=== PATIENT | female | born 2000 | race Two or more races ===

== ENCOUNTER 2021-10-15 15:45 | Observation (INO) | payer OTHER ==
[~2021-10-15] VITALS: Ht 160 cm; Wt 77.1 kg
[2021-10-15 17:23] LABS: Basophils # (auto) 0.1 10 ^3/uL (0-0.2); Basophils % (auto) 0.5 % (0.0-2.0); Eosinophils # (auto) 0 10 ^3/uL (0-0.8); Eosinophils % (auto) 0.3 % (0.0-7.0)
[2021-10-15 17:25] LABS: Hematocrit 33.2 % (36.0-46.0); Hemoglobin 10.8 g/dL (12.2-16.2); Lymphocytes # (auto) 1.6 10 ^3/uL (0.4-5.4); Mean Corpuscular Hemoglobin 24.5 pg (28.0-32.0); Mean Corpuscular Hgb Conc. 32.5 g/dL (32.0-36.0); Mean Corpuscular Volume 75.4 fL (80.0-100.0); Monocytes # (auto) 0.7 10 ^3/uL (0-1.3); Monocytes % (auto) 6.5 % (0.0-12.0); Neutrophils # (auto) 7.8 10 ^3/uL (1.6-8.6); Neutrophils % (auto) 76.7 % (37.0-80.0); Nucleated Red Blood Cells % 0.1 %; Red Cell Distribution Width 15.2 % (11.8-14.3); White Blood Cell 10.1 10^3/uL (4.4-10.8)
[2021-10-15 17:36] LABS: INR 0.94 (0.9-1.15); Partial Thromboplastin Time 26.7 sec (24.6-33.4)
[2021-10-15 17:42] LABS: Albumin 2.6 g/dL (3.4-5.0); Calcium 8.8 mg/dL (8.5-10.1)
[2021-10-15 17:46] LABS: BUN/Creatinine Ratio 17.2; Bilirubin, Total 0.3 mg/dL (0.2-1.0); Total Protein 6.5 g/dL (6.4-8.2)
[2021-10-16] MEDS ORDERED: PREN-96 PO (00:26)
[2021-10-16 05:07] LABS: Rubella Antibodies, IgG 1.25 index (Immune >0.99)
[2021-10-16 06:07] LABS: RPR Non Reactive (Non Reactive)
== END 2021-10-15 18:09 | disposition home or self-care (01) ==
LOC: LDRP 15:45 → UNDOADMOB 15:45 → LDRP 16:25
PROVIDERS: ADMIT Obstetrics & Gynecology; ATTEND Obstetrics & Gynecology
DX: O62.9 Abnormality of forces of labor, unspecified (principal); Z3A.39 39 weeks gestation of pregnancy; Z88.0 Allergy status to penicillin
CPT/HCPCS: 36415; 59025; 76805; 80053; 81002; 85025; 85610; 85730; 86592; 86703; 86762; 86850; 86900; 86901; G0378; 80307; 81001; 87340

== ENCOUNTER 2021-10-16 | Inpatient (IN) | payer OTHER ==
[~2021-10-16] VITALS: Ht 162.6 cm; Wt 77.1 kg
[2021-10-16] MEDS ORDERED: PREN-96 PO (00:26)
[2021-10-16] MEDS ORDERED: PHISODERM TOP SOLN 240ML BTL TOP PRN (00:30)
[2021-10-16] MEDS ORDERED: miSOPROStol 100 mcg TAB SL PRN (00:30)
[2021-10-16] MEDS ORDERED: CARBOPROST TROMETHAMINE 250 MCG/1ML VIAL IM PRN (00:30)
[2021-10-16] MEDS ORDERED: miSOPROStol 100 mcg TAB PR PRN (00:30)
[2021-10-16] MEDS ORDERED: WITCH HAZEL-GLYCERIN PAD TOP PRN (00:30)
[2021-10-16] MEDS ORDERED: LACTATED RINGER'S 1,000 ML IV SCH (00:30)
[2021-10-16] MEDS ORDERED: PROMETHAZINE HCL 25 MG/ML 1ML IV PRN (00:30)
[2021-10-16] MEDS ORDERED: NS/OXYTOCIN 20UNITS 500 ML IV ONE ×3 (00:30→04:15)
[2021-10-16] MEDS ORDERED: DERMOPLAST 60ML BOTTLE TOP PRN (00:30)
[2021-10-16] MEDS ORDERED: BUTORPHANOL TARTRATE 2 MG/1 ML VIAL IV PRN ×2 (00:30)
[2021-10-16] MEDS ORDERED: METHYLERGONOVINE MALEATE 0.2 MG/ML AMP IM PRN (00:30)
[2021-10-16] MEDS ORDERED: LIDOCAINE 2%HCL (LOCAL ANESTH.) INJ 10ml MDV IJ PRN (00:30)
[2021-10-16] MEDS ORDERED: CLINDAMYCIN 900MG IV 50 ML IV SCH (01:00)
[2021-10-16 01:48] LABS: Urine Bacteria NONE SEEN /hpf (None Seen); Urine Blood 3+ /uL (Negative); Urine Mucus FEW (None Seen); Urine Specific Gravity 1.027 (1.001-1.035); Urine WBC 11 /hpf (0 - 5)
[2021-10-16 01:57] LABS: Alcohol, Urine < 3.0 mg/dL (0-10); Amphetamine Screen, Urine NEGATIVE (NEGATIVE); Barbiturate Scree,Urine NEGATIVE (NEGATIVE); Benzodiazephine Screen, Urine NEGATIVE (NEGATIVE); Cannabinoid Screen, Urine POSITIVE (NEGATIVE); Cocaine Screen, Urine NEGATIVE (NEGATIVE); Opiate Scree,Urine NEGATIVE (NEGATIVE); Phencyclidine Screen, Urine NEGATIVE (NEGATIVE)
[2021-10-16] MEDS ORDERED: IBUPROFEN 800 MG TAB PO SCH (06:00)
[2021-10-16 07:00] VITALS: BP 115/62
[2021-10-16 10:56] VITALS: BP 130/79
[2021-10-16 15:00] VITALS: BP 106/72
[2021-10-16] MEDS: IBUPROFEN 600 MG TAB PO PRN ×2 (15:27→23:48)
[2021-10-16 19:05] VITALS: BP 116/71
[2021-10-16] MEDS: ACETAMINOPHEN 325 MG TAB PO PRN (20:06)
[2021-10-16] MEDS ORDERED: DOCUSATE SOD 100 MG CAP PO SCH (22:00)
[2021-10-16 23:00] VITALS: BP 118/74
[2021-10-17] MEDS: ACETAMINOPHEN 325 MG TAB PO PRN (02:37)
[2021-10-17 03:00] VITALS: BP 97/56
[2021-10-17 07:00] VITALS: BP 105/56
[2021-10-17] MEDS: IBUPROFEN 600 MG TAB PO PRN (08:32)
[2021-10-17] MEDS ORDERED: IBU600T PO (09:07)
[2021-10-17 11:00] VITALS: BP 110/60
== END 2021-10-17 13:08 | disposition home or self-care (01) | DRG 560 ==
LOC: LDRP → OBSVTOIN 00:10 → LDRP 00:11
PROVIDERS: ADMIT Obstetrics & Gynecology; ATTEND Obstetrics & Gynecology
PROC: 10E0XZZ Delivery of Products of Conception, External Approach (ICD-10-PCS; principal; 2021-10-16)
PROC: 0KQM0ZZ Repair Perineum Muscle, Open Approach (ICD-10-PCS; 2021-10-16)
DX: O69.81X0 Labor and delivery complicated by cord around neck, without compression, not applicable or unspecified (principal); Z37.0 Single live birth; O99.324 Drug use complicating childbirth; F12.90 Cannabis use, unspecified, uncomplicated; O70.1 Second degree perineal laceration during delivery; Z3A.39 39 weeks gestation of pregnancy; O77.0 Labor and delivery complicated by meconium in amniotic fluid; Z88.0 Allergy status to penicillin; Z20.822 Contact with and (suspected) exposure to COVID-19
CPT/HCPCS: 36415; 59025; 59409; 80307; 81001; 81002; 84550; 87340; 94760; 96360; 96361; 96366; 96374; 96375; G0378; J2001; J3490